=== PATIENT | female | born 1950 | race Caucasian/White ===

== ENCOUNTER 2025-10-31 06:37 | Outpatient (RCR) | payer MEDICARE, BC, SELFPAY | END 2025-10-31 23:59 | disposition home or self-care (01) | LOC: ROT 06:37 | PROVIDERS: ATTENDING PHYSICIAN Physical Medicine & Rehabilitation; FAMILY PHYSICIAN Family Medicine | DX: Z47.89 Encounter for other orthopedic aftercare (principal); Z73.6 Limitation of activities due to disability; R26.89 Other abnormalities of gait and mobility; M79.602 Pain in left arm; M25.542 Pain in joints of left hand; R20.0 Anesthesia of skin; M62.81 Muscle weakness (generalized); W10.9XXD Fall (on) (from) unspecified stairs and steps, subsequent encounter; M43.22 Fusion of spine, cervical region | CPT/HCPCS: 97110; 97112; 97163; 97167; 97530; 97535 ==